=== PATIENT | female | born 1930 | race Caucasian/White ===

== ENCOUNTER 2017-04-18 11:53 | Inpatient (IN) | payer OTHER, MEDICARE ==
[~2017-04-18] VITALS: Ht 160 cm; Wt 89.9 kg
[2017-04-18] VITALS (9 sets, daily range): BP systolic 122–203; BP diastolic 70–81; PULSE 78–96; RESP 12–24; TEMP 96.7–97.7; O2SAT 94–99
[2017-04-18] MEDS ORDERED: ONDANSETRON HCL 4 MG/2 ML VIAL ONE (11:55)
[2017-04-18] MEDS ORDERED: MORPHINE SULFATE 4 MG/ML INJ ONE (11:55)
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
[2017-04-18 12:18] LABS: BASOPHIL # 0.1 TH/MM3 (0-0.2); BASOPHIL % 0.6 % (0.0-2.0); EOSINOPHIL # 0.2 TH/MM3 (0-0.4); EOSINOPHIL % 1.8 % (0.0-4.0); HEMATOCRIT 40.6 % (35.0-46.0); HEMOGLOBIN 13.9 GM/DL (11.6-15.3); LYMPH % 42.8 % (9.0-44.0); LYMPHOCYTE # 4.4 TH/MM3 (1.0-4.8); MEAN CELL VOLUME 92.3 FL (80.0-100.0); MEAN CORPUSCULAR HEMOGLOBIN 31.5 PG (27.0-34.0); MEAN CORPUSCULAR HGB CONC 34.2 % (32.0-36.0); MEAN PLATELET VOLUME 9.2 FL (7.0-11.0); MONO % 6.4 % (0.0-8.0); MONOCYTE # 0.7 TH/MM3 (0-0.9); NEUT % 48.4 % (16.0-70.0); PLATELET COUNT 276 TH/MM3 (150-450); WHITE BLOOD COUNT 10.2 TH/MM3 (4.0-11.0)
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
[2017-04-18] MEDS ORDERED: IOHEXOL 350 MG/ML 10 ML VIAL (for RAD DIAG) IVCONTRAST ONE (12:24)
[2017-04-18 12:26] LABS: INTERNATIONAL NORMALIZED RATIO 1.1 RATIO
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
[2017-04-18] MEDS ORDERED: CHLORHEXIDINE GLUCONATE 2 % 1 PACK (2 CLOTHS) TOP PRN (12:30)
[2017-04-18] MEDS ORDERED: SODIUM CHLORIDE 0.9% FLUSH 10 ML FLUSH IV FLUSH PRN (12:30)
[2017-04-18] MEDS ORDERED: MAGNESIUM HYDROXIDE SUSP 30 ML CUP PO PRN (12:30)
[2017-04-18] MEDS ORDERED: ONDANSETRON HCL 4 MG/2 ML VIAL IV PUSH PRN (12:30)
[2017-04-18] MEDS ORDERED: MISCELLANEOUS NURSING INFORMATION XX SCH (12:30)
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
[2017-04-18] MEDS: ACETAMINOPHEN/HYDROcodone 325 MG/5 MG TAB PO PRN ×2 (14:39→20:32)
[2017-04-18] MEDS: DOCUSATE SODIUM 100 MG CAP PO SCH (20:31)
[2017-04-19] VITALS (8 sets, daily range): BP systolic 117–149; BP diastolic 61–73; PULSE 73–95; RESP 17–18; TEMP 96.6–98.3; O2SAT 94–96
[2017-04-19] MEDS: ACETAMINOPHEN/HYDROcodone 325 MG/5 MG TAB PO PRN ×3 (03:59→17:09)
[2017-04-19] MEDS: CHLORHEXIDINE GLUCONATE 2 % 1 PACK (2 CLOTHS) TOP SCH (03:59)
[2017-04-19 07:35] LABS: AUTOMATED NEUTROPHIL # 4.4 TH/MM3 (1.8-7.7); BASOPHIL % 0.4 % (0.0-2.0); EOSINOPHIL % 0.5 % (0.0-4.0); HEMATOCRIT 32.8 % (35.0-46.0); HEMOGLOBIN 11.3 GM/DL (11.6-15.3); LYMPH % 29.5 % (9.0-44.0); LYMPHOCYTE # 2.3 TH/MM3 (1.0-4.8); MEAN CELL VOLUME 92.3 FL (80.0-100.0); MEAN CORPUSCULAR HEMOGLOBIN 31.8 PG (27.0-34.0); MEAN CORPUSCULAR HGB CONC 34.4 % (32.0-36.0); MEAN PLATELET VOLUME 8.8 FL (7.0-11.0); MONO % 12.5 % (0.0-8.0); NEUT % 57.1 % (16.0-70.0); PLATELET COUNT 241 TH/MM3 (150-450); RED BLOOD COUNT 3.55 MIL/MM3 (4.00-5.30); WHITE BLOOD COUNT 7.7 TH/MM3 (4.0-11.0)
[2017-04-19] MEDS ORDERED: GLUCAGON 1 MG/ML VIAL OTHER PRN (08:00)
[2017-04-19] MEDS ORDERED: DEXTROSE 50% IN WATER 50 ML VIAL(D50) IV PUSH PRN (08:00)
[2017-04-19] MEDS ORDERED: MAGN30S PO (08:05)
[2017-04-19] MEDS ORDERED: DOCU1CAP39 PO (08:05)
[2017-04-19] MEDS: DOCUSATE SODIUM 100 MG CAP PO SCH ×2 (08:10→21:49)
[2017-04-19] MEDS: FAMOTIDINE 20 MG TAB PO SCH ×2 (10:08→21:49)
[2017-04-19] MEDS: INSULIN ASPART SUPPLEMENTAL SCALE SQ SCH ×4 (10:09→21:00)
[2017-04-19] MEDS ORDERED: HYDR-3516 PO (10:50)
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
[2017-04-19 14:02] LABS: HEMATOCRIT 32.1 % (35.0-46.0); HEMOGLOBIN 10.9 GM/DL (11.6-15.3)
[2017-04-19] MEDS ORDERED: WALKER WHEELS/F1 MIS (14:57)
[2017-04-20] VITALS (7 sets, daily range): BP systolic 122–157; BP diastolic 60–69; PULSE 79–100; RESP 16–18; TEMP 96–99.2; O2SAT 92–97
[2017-04-20] MEDS: ACETAMINOPHEN/HYDROcodone 325 MG/5 MG TAB PO PRN ×4 (02:18→23:20)
[2017-04-20] MEDS: CHLORHEXIDINE GLUCONATE 2 % 1 PACK (2 CLOTHS) TOP SCH (02:19)
[2017-04-20 04:41] LABS: AUTOMATED NEUTROPHIL # 4.2 TH/MM3 (1.8-7.7); BASOPHIL % 0.4 % (0.0-2.0); EOSINOPHIL # 0.2 TH/MM3 (0-0.4); EOSINOPHIL % 2.1 % (0.0-4.0); HEMATOCRIT 29.6 % (35.0-46.0); HEMOGLOBIN 10.2 GM/DL (11.6-15.3); LYMPH % 31.7 % (9.0-44.0); LYMPHOCYTE # 2.4 TH/MM3 (1.0-4.8); MEAN CELL VOLUME 91.6 FL (80.0-100.0); MEAN CORPUSCULAR HEMOGLOBIN 31.7 PG (27.0-34.0); MEAN CORPUSCULAR HGB CONC 34.6 % (32.0-36.0); MEAN PLATELET VOLUME 8.6 FL (7.0-11.0); MONO % 10.2 % (0.0-8.0); MONOCYTE # 0.8 TH/MM3 (0-0.9); NEUT % 55.6 % (16.0-70.0); PLATELET COUNT 228 TH/MM3 (150-450); RED BLOOD COUNT 3.23 MIL/MM3 (4.00-5.30); WHITE BLOOD COUNT 7.6 TH/MM3 (4.0-11.0)
[2017-04-20 05:11] LABS: BICARBONATE 28.3 MEQ/L (21.0-32.0); CALCIUM 9.2 MG/DL (8.5-10.1); CREATININE 0.87 MG/DL (0.50-1.00)
[2017-04-20] MEDS ORDERED: POTASSIUM CHLORIDE 20 MEQ CONTROLLED RELEASE TAB PO ONE (08:00)
[2017-04-20] MEDS: INSULIN ASPART SUPPLEMENTAL SCALE SQ SCH ×4 (08:17→20:13)
[2017-04-20] MEDS: DOCUSATE SODIUM 100 MG CAP PO SCH ×2 (08:18→20:14)
[2017-04-20] MEDS: FAMOTIDINE 20 MG TAB PO SCH ×2 (08:18→20:15)
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
[2017-04-21] VITALS (7 sets, daily range): BP systolic 140–168; BP diastolic 59–74; PULSE 74–101; RESP 15–18; TEMP 95.8–98.7; O2SAT 93–96
[2017-04-21] MEDS: CHLORHEXIDINE GLUCONATE 2 % 1 PACK (2 CLOTHS) TOP SCH ×2 (04:00→22:42)
[2017-04-21] MEDS: INSULIN ASPART SUPPLEMENTAL SCALE SQ SCH ×4 (08:46→21:00)
[2017-04-21] MEDS: FAMOTIDINE 20 MG TAB PO SCH ×2 (08:46→22:07)
[2017-04-21] MEDS: DOCUSATE SODIUM 100 MG CAP PO SCH ×2 (08:46→22:08)
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
[2017-04-21] MEDS ORDERED: LACTULOSE SYRUP 20 GM/30 ML CUP PO ONE (11:00)
[2017-04-21] MEDS: ACETAMINOPHEN/HYDROcodone 325 MG/5 MG TAB PO PRN (22:08)
[2017-04-21] MEDS: MAGNESIUM HYDROXIDE SUSP 30 ML CUP PO SCH (22:08)
[2017-04-22] VITALS: BP 163/63; PULSE 85; RESP 16; TEMP 98.7; O2SAT 96
[2017-04-22 04:00] VITALS: BP 124/62; PULSE 80; RESP 16; TEMP 97.2; O2SAT 99
[2017-04-22] MEDS: FAMOTIDINE 20 MG TAB PO SCH ×2 (07:15→20:17)
[2017-04-22] MEDS: MAGNESIUM HYDROXIDE SUSP 30 ML CUP PO SCH ×2 (07:15→20:18)
[2017-04-22] MEDS: DOCUSATE SODIUM 100 MG CAP PO SCH ×2 (07:15→20:18)
[2017-04-22 08:00] VITALS: BP 170/72; PULSE 78; RESP 17; TEMP 97.5; O2SAT 94
[2017-04-22] MEDS: INSULIN ASPART SUPPLEMENTAL SCALE SQ SCH ×4 (08:06→20:19)
[2017-04-22 12:00] VITALS: BP 131/60; PULSE 78; RESP 15; TEMP 96.8; O2SAT 93
[2017-04-22 16:00] VITALS: BP 145/65; PULSE 83; RESP 16; TEMP 99.3; O2SAT 95
[2017-04-22] MEDS: CALCIUM CARBONATE 500 MG CHEWABLE TAB PO PRN (17:00)
[2017-04-22 19:55] VITALS: BP 145/79; PULSE 97; RESP 18; TEMP 96.8; O2SAT 95
[2017-04-22] MEDS: ACETAMINOPHEN/HYDROcodone 325 MG/5 MG TAB PO PRN (20:17)
[2017-04-22] MEDS: CHLORHEXIDINE GLUCONATE 2 % 1 PACK (2 CLOTHS) TOP SCH (20:19)
[2017-04-23 00:18] VITALS: BP 130/56; PULSE 74; RESP 18; TEMP 97; O2SAT 97
[2017-04-23] MEDS: ACETAMINOPHEN/HYDROcodone 325 MG/5 MG TAB PO PRN ×2 (00:21→17:45)
[2017-04-23 07:31] VITALS: BP 146/64; PULSE 82; RESP 18; TEMP 96.7; O2SAT 96
[2017-04-23] MEDS: DOCUSATE SODIUM 100 MG CAP PO SCH (07:34)
[2017-04-23] MEDS: FAMOTIDINE 20 MG TAB PO SCH (07:34)
[2017-04-23] MEDS: MAGNESIUM HYDROXIDE SUSP 30 ML CUP PO SCH (07:34)
[2017-04-23] MEDS: INSULIN ASPART SUPPLEMENTAL SCALE SQ SCH ×3 (08:22→17:00)
[2017-04-23] MEDS: CALCIUM CARBONATE 500 MG CHEWABLE TAB PO PRN (10:08)
[2017-04-23 11:35] VITALS: BP 150/80; PULSE 83; RESP 18; TEMP 96.2; O2SAT 97
[2017-04-23 15:42] VITALS: BP 113/86; PULSE 90; RESP 18; TEMP 96; O2SAT 97
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
== END 2017-04-23 17:49 | disposition home health service (06) | DRG 605 ==
LOC: NEPI 11:53 → EDBD 12:44 → OBSVTOIN 12:44 → NEDA 12:44 → N06B 16:43
PROVIDERS: ADMIT Surgery; ATTEND Surgery
DX: S30.1XXA Contusion of abdominal wall, initial encounter (principal); S82.56XA Nondisplaced fracture of medial malleolus of unspecified tibia, initial encounter for closed fracture; V49.59XA Passenger injured in collision with other motor vehicles in traffic accident, initial encounter; Y92.410 Unspecified street and highway as the place of occurrence of the external cause; N63.20 Unspecified lump in the left breast, unspecified quadrant; K59.00 Constipation, unspecified; K57.90 Diverticulosis of intestine, part unspecified, without perforation or abscess without bleeding
CPT/HCPCS: 70450; 71045; 71260; 72125; 72129; 72132; 72170; 73590; 73610; 74177; 80048; 82948; 85014; 85018; 85025; 85610; 85730; 86850; 86900; 86901; 94150; 96374; 96375; 99291; G0390; J1815; J2270; J2405; L2114; Q9967